=== PATIENT | male | born 1950 | race American Indian/Alaskan Native ===

== ENCOUNTER 2018-09-01 12:22 | Emergency (ER) | payer MEDICARE ==
[2018-09-01 12:28] VITALS: BP 154/94
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
== END 2018-09-01 15:49 | disposition home or self-care (01) ==
LOC: ED 12:22
DX: G89.4 Chronic pain syndrome (principal); M79.641 Pain in right hand; F17.200 Nicotine dependence, unspecified, uncomplicated
CPT/HCPCS: 99282

== ENCOUNTER 2018-10-26 07:48 | Day surgery (SDC) | payer MEDICARE ==
[2018-10-26] MEDS ORDERED: LACTATED RINGERS 1,000 ML IV SCH (10:00)
[2018-10-26] MEDS ORDERED: DIPRIVAN 10 MG/ML IV ONE ×5 (11:19→11:20)
[2018-10-26] MEDS ORDERED: KETALAR ONE (11:20)
[2018-10-26] MEDS ORDERED: VERSED ONE (11:21)
[2018-10-26] MEDS ORDERED: SUBLIMAZE ONE ×2 (11:22→12:09)
[2018-10-26] MEDS ORDERED: DILAUDID IV PRN (11:54)
--- NOTE | 2018-10-26 11:54 | Anesthesia Consultation ---
Anesthesia Consult and Med Hx Date of service: 10/26/18 - Airway Anesthetic Teeth Evaluation: Poor ROM Head & Neck: Adequate Mental/Hyoid Distance: Adequate Mallampati Class: Class II Intubation Access Assessment: Probably Good - Pulmonary Exam CTA: Yes - Cardiac Exam Cardiac Exam: RRR - Pre-Operative Health Status ASA Pre-Surgery Classification: ASA2 Proposed Anesthetic Plan: MAC - Pulmonary Hx Smoking: Yes Hx Respiratory Symptoms: No Hx Sleep Apnea: No - Cardiovascular System Hx Hypertension: No Hx Heart Attack/AMI: No - Central Nervous System CVA: No - Gastrointestinal Hx Gastroesophageal Reflux Disease: No - Endocrine Hx Renal Disease: No Hx Insulin Dependent Diabetes: No - Other Systems Hx Obesity: No
--- NOTE | 2018-10-26 11:54 | Anesthesia Day of Surgery ---
Anesthesia Day of Surgery - Day of Surgery Patient Examined: Yes Patient H&P Reviewed: Yes Patient is NPO: Yes
[2018-10-26] MEDS ORDERED: NACL 0.9% 1000 ML IR ONE (11:56)
[2018-10-26] MEDS ORDERED: XYLOCAINE MPF 2% ONE (12:09)
[2018-10-26] MEDS ORDERED: ROBINUL ONE (12:09)
[2018-10-26] MEDS ORDERED: XYLOCAINE 1% 20 mL ONE (12:13)
[2018-10-26] MEDS ORDERED: MARCAINE 0.25% INFILTRATI ONE ×2 (12:13→13:05)
[2018-10-26] MEDS ORDERED: ANCEF/STERILE WATER 2 GM/20 ML IV NR (13:00)
[2018-10-26] MEDS ORDERED: XYLOCAINE 1% 20 mL INFILTRATI ONE (13:05)
--- NOTE | 2018-10-26 13:58 | Procedure Note ---
Date of procedure: 10/26/18 Pre-op diagnosis: malunion proximal phalanx right second finger Post-op diagnosis: same Procedure: Open reduction internal fixation right proximal phalanx second finger Procedure The patient was brought to the OR and placed in the ER table in supine position following Mac anesthesia patient's right upper extremity was prepped and draped in the usual sterile manner. A timeout procedure was done to identify the patient and the correct operative site. The arm was exsanguinated followed by inflation of the pneumatic tourniquet to 250 mmHg. A dorsal incision was made and a bayonet-type fashion over the proximal aspect of the phalanx to the PIP joint next the extensor tendon was seen this was then incised longitudinally exposing the fracture site the patient was noted to have fairly substantial fracture callus formation using C-arm fluoroscopy with a would then applied the fracture malunion site using a small osteotome to fracture callus was broken allowing some manipulation of the fracture fragments. Small mini frag lock plate was applied to the distal portion of the proximal phalanx the head fragment splintered doing the manipulation process therefore an interfragmentary screw was used to stabilize this segment followed by placement of the T-type plate with screws of appropriate lengths A AP and lateral view was obtained showing good reduction at the fracture site and placement of the hardware. Next the wound was copiously irrigated the extensor tendon was repaired using 4-0 nylon in an interrupted fashion 3-0 nylon was then applied to the skin for closure. Postop dressings and AlumaFoam splint applied to the second finger. P atient tolerated the procedure dental complications Anesthesia: MAC Surgeon: JOCE MARTINEZ Floor Winder: CLARISSA IYER Estimated blood loss: minimal Pathology: none Condition: stable Disposition: PACU
[2018-10-26 14:39] VITALS: BP 149/99
--- NOTE | 2018-10-26 15:14 | XRay Report ---
Operative right second finger: AP and lateral views demonstrates internal fixation of the proximal phalanx. There is an oblique fracture through the distal third stabilized with a posterior plate and multiple screws. There are 2 distal transverse screws. The ulnar margin of the bone appears from the penetrating screws. No additional information obtained.
== END 2018-10-26 07:49 | disposition home or self-care (01) ==
LOC: OR 07:48
PROVIDERS: ATTEND Orthopaedic Surgery
DX: S62.610 Displaced fracture of proximal phalanx of right index finger (principal); F17.210 Nicotine dependence, cigarettes, uncomplicated; Z79.899 Other long term (current) drug therapy; X58.XXXD Exposure to other specified factors, subsequent encounter
CPT/HCPCS: 26735; 73140; C1713; J0690; J1170; J2250; J2704; J3010; J7030; J7120

== ENCOUNTER 2019-01-05 18:16 | Emergency (ER) | payer MEDICARE ==
[2019-01-05 20:00] LABS: Basophils % (Auto) 0.6 % (0.0-1.8); Eosinophils # (Auto) 0.1 K/mm3 (0.0-0.4); Eosinophils % (Auto) 0.9 % (0.0-4.3); Hematocrit 39.6 % (35.5-45.6); Hemoglobin 13.4 gm/dl (11.8-15.2); Lymphocytes # (Auto) 1.4 K/mm3 (1.2-5.4); Lymphocytes % (Auto) 17.7 % (13.4-35.0); Mean Corpuscular HGB Conc 34 % (32-34); Mean Corpuscular Volume 84 fl (84-94); Monocytes # (Auto) 0.6 K/mm3 (0.0-0.8); Monocytes % (Auto) 7.6 % (0.0-7.3); Platelet Count 233 K/mm3 (140-440); Red Blood Count 4.73 M/mm3 (3.65-5.03); Red Cell Distribution Width 15.6 % (13.2-15.2)
[2019-01-05 20:19] LABS: BUN/Creatinine Ratio 8; Blood Urea Nitrogen 8 mg/dL (9-20); Calcium 9.1 mg/dL (8.4-10.2)
[2019-01-05 20:20] LABS: Hemolysis Index 14
--- NOTE | 2019-01-05 20:20 | Emergency Department Report ---
ED General Adult HPI - General Chief complaint: Psych Stated complaint: ETOH/DEPRESSION Time Seen by Provider: 01/05/19 20:05 Source: patient, EMS Mode of arrival: Ambulatory Limitations: No Limitations - History of Present Illness Initial comments: Patient is a 68-year-old male that presents emergency room with complaints of depression, acute intoxication. Patient also complains of suicidal ideations. Patient states that he has been having thoughts of killing himself and his plan is to drink himself to . Patient states she's been drinking for the past few weeks due to his depression. Patient states he was sober for 6 months until he became severely depressed. Patient states been having a lot of family stressors. Patient denies homicidal ideation. Patient denies hallucinations. Patient states he is currently intoxicated. Patient states earlier today he drank so much that he fell and hit his head. -: Sudden - Related Data Home Medications Medication Instructions Recorded Confirmed Last Taken No Known Home Medications [No 01/05/19 01/05/19 Unknown Reported Home Medications] Allergies Allergy/AdvReac Type Severity Reaction Status Date / Time No Known Allergies Allergy Verified 01/05/19 19:28 ED Review of Systems ROS: Stated complaint: ETOH/DEPRESSION Other details as noted in HPI Constitutional: denies: chills, fever Eyes: denies: eye pain, eye discharge, vision change ENT: denies: ear pain, throat pain Respiratory: denies: cough, shortness of breath, wheezing Cardiovascular: denies: chest pain, palpitations Endocrine: no symptoms reported Gastrointestinal: denies: abdominal pain, nausea, diarrhea Genitourinary: denies: urgency, dysuria Musculoskeletal: denies: back pain, joint swelling, arthralgia Skin: denies: rash, lesions Neurological: denies: headache, weakness, paresthesias Psychiatric: anxiety, depression, suicidal thoughts Hematological/Lymphatic: denies: easy bleeding, easy bruising ED Past Medical Hx - Past Medical History Previous Medical History?: Yes Hx Hypertension: No Hx Heart Attack/AMI: No Hx Renal Disease: No Additional medical history: Hep C - Surgical History Past Surgical History?: Yes Additional Surgical History: Both hands. hernia - Family History Family history: no significant - Social History Smoking Status: Former Smoker Substance Use Type: Alcohol - Medications Home Medications: Home Medications Medication Instructions Recorded Confirmed Last Taken Type No Known Home Medications [No 01/05/19 01/05/19 Unknown History Reported Home Medications] ED Physical Exam - General Limitations: No Limitations General appearance: alert, in no apparent distress - Head Head exam: Present: atraumatic, normocephalic - Eye Eye exam: Present: normal appearance, PERRL, other (left face abrasion.) Pupils: Present: normal accommodation - ENT ENT exam: Present: mucous membranes moist - Neck Neck exam: Present: normal inspection - Respiratory Respiratory exam: Present: normal lung sounds bilaterally. Absent: respiratory distress - Cardiovascular Cardiovascular Exam: Present: regular rate, normal rhythm. Absent: systolic murmur, diastolic murmur, rubs, gallop - GI/Abdominal GI/Abdominal exam: Present: soft, normal bowel sounds - Rectal Rectal exam: Present: deferred - Extremities Exam Extremities exam: Present: normal inspection - Back Exam Back exam: Present: normal inspection - Neurological Exam Neurological exam: Present: alert, oriented X3 - Psychiatric Psychiatric exam: Present: normal affect, normal mood - Skin Skin exam: Present: warm, dry, normal color, abrasion (left face). Absent: rash ED Course Vital Signs 01/05/19 20:31 Respiratory 16 Rate O2 Sat by Pulse 99 Oximetry - Reevaluation(s) Reevaluation #1: Initial evaluation done. Patient placed on a 1013. 01/05/19 20:30 Reevaluation #2: Discussed all results the patient. Patient is medically cleared but will remain in the ER on a 1013. Patient remained in the ER until he is accepted into a [facility] psychiatric facility. 01/06/19 00:02 ED Medical Decision Making - Lab Data Result diagrams: 01/05/19 19:49 01/05/19 19:49 - Radiology Data Radiology results: report reviewed CT head/brain wo con INDICATION: head injury.. TECHNIQUE: Routine CT head without contrast. All CT scans at this location are performed using CT dose reduction for ALARA by means of automated exposure control. COMPARISON: None. FINDINGS: BRAIN / INTRACRANIAL CONTENTS: No acute hemorrhage, mass effect, midline shift, or hydrocephalus. No appreciable acute large territorial or lacunar infarct. No chronic infarct. ORBITS: No significant abnormality of visualized orbits. SINUSES / MASTOIDS: No significant abnormality of visualized sinuses and mastoid air cells. ADDITIONAL FINDINGS: Small left facial soft tissue contusion, not completely imaged. IMPRESSION: 1. No acute intracranial abnormality. - Medical Decision Making Patient is a 68-year-old male that presents emergency room with depression, acute intoxication and suicidal ideation. Patient's ideations or with the plan. Patient placed on 1013. Patient had multiple labs which were unremarkable except for elevated blood alcohol. Patient had a head CT done and negative. Karel jori is medically cleared - Differential Diagnosis suicidal ideations. Acute intoxication. Head injury. Fall. Critical care attestation.: If time is entered above; I have spent that time in minutes in the direct care of this critically ill patient, excluding procedure time. ED Disposition Clinical Impression: Suicidal ideation, Acute depression Acute alcohol intoxication Qualifiers: Complication of substance-induced condition: uncomplicated Qualified Code(s): F10.920 - Alcohol use, unspecified with intoxication, uncomplicated Fall Qualifiers: Encounter type: initial encounter Qualified Code(s): W19.XXXA - Unspecified fall, initial encounter Head injury Qualifiers: Encounter type: initial encounter Qualified Code(s): S09.90XA - Unspecified injury of head, initial encounter Facial abrasion Qualifiers: Encounter type: initial encounter Qualified Code(s): S00.81XA - Abrasion of other part of head, initial encounter Disposition: DC/TX-65 PSY HOSP/PSY UNIT Is pt being admited?: No Does the pt Need Aspirin: No Condition: Stable Additional Instructions: Patient is medically cleared Referrals: MAGGIE TORREZ MD [Primary Care Provider] - 3-5 Days Time of Disposition: 00:02
[2019-01-05 20:42] LABS: Bilirubin,Urine NEG (Negative); Blood,Urine MOD (Negative); Color,Urine Yellow (Yellow); Mucus,Urine 3+ /HPF; Protein,Urine <15 mg/dL mg/dL (Negative); Urobilinogen,Urine < 2.0 mg/dL (<2.0)
[2019-01-05 20:56] LABS: Amphetamine Screen,Urine PRESUMPTIVE NEGATIVE; Benzodiazepines Screen,Urine PRESUMPTIVE NEGATIVE; Cannabinoid Screen,Urine PRESUMPTIVE NEGATIVE; Methadone Screen,Urine PRESUMPTIVE NEGATIVE; Opiate Screen,Urine PRESUMPTIVE NEGATIVE
[2019-01-05 21:15] LABS: Cocaine Screen,Urine PRESUMPTIVE POSITIVE
--- NOTE | 2019-01-05 23:23 | Cat Scan Report ---
CT head/brain wo con INDICATION: head injury.. TECHNIQUE: Routine CT head without contrast. All CT scans at this location are performed using CT dos e reduction for ALARA by means of automated exposure control. COMPARISON: None. FINDINGS: BRAIN / INTRACRANIAL CONTENTS: No acute hemorrhage, mass effect, midline shift, or hydrocephalus. No appreciable acute large territorial or lacunar infarct. No chronic infarct. ORBITS: No significant abnormality of visualized orbits. SINUSES / MASTOIDS: No significant abnormality of visualized sinuses and mastoid air cells. ADDITIONAL FINDINGS: Small left facial soft tissue contusion, not completely imaged. IMPRESSION: 1. No acute intracranial abnormality. Signer Name: Nixon Santiago MD Signed: 01/05/2019 11:18 PM Workstation Name: [id number]
[2019-01-06] MEDS ORDERED: MAGNESIUM SULFATE 2GM/50ML 0 GM/0 ML BAG IV ONE (02:09)
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
[2019-01-07] MEDS: MELATONIN PO SCH (21:57)
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
--- NOTE | 2019-01-08 07:55 | Progress Note ---
Subjective - Reason for Consult Consult date: 01/08/19 Reason for consult: Psychiatry Follow-up - Chief Complaint Chief complaint: "I have no idea what's going to happen to me" 68-year-old AA who presented to the ER for SI's and ETOH. Today the patient was calm and cooperative during the assessment. He stated that he is concerned about his living arrangements at this time. He would not confirm or deny SI's when asked. He rate his depression 6/10, with 10 being the worse. He denies HI's and AVH's. Mental Status Exam - Vital signs Last Vital Signs Temp 97.5 F L 01/08/19 02:03 Pulse 66 01/08/19 02:03 Resp 16 01/08/19 02:03 BP 112/72 01/08/19 02:03 Pulse Ox 99 01/08/19 02:03 - Exam Narrative exam: MSE: Appearance: calm, cooperative Behavior: regular eye contact Speech: regular rate and tone Mood: "not good" Affect: flat Thought Process: circumstantial Thought Content: denies HI's and AVH's Motor Activity: ambulatory Cognition: A/O x 3 Insight: variable to fair Judgment: variable Assessment and Plan Impression: MDD, Single Episode. Alcohol Use DO. Substance Use DO (cocaine). Today the patient was calm and cooperative during the assessment. No acute withdrawals noted (etoh). DDx: Substance Induced Mood DO Recommendation/Plan: Continue 1013 and Prozac 20 mg PO daily for depression and Melatonin 5 mg PO HS for sleep. Discussed possible suicidality/medication induced min with the patient reference Prozac, he verbalized understanding. Dispo: The patient was accepted at [facility] for inpatient psy services. Will staffed with Dr Irina Lopez.
[2019-01-08] MEDS: PROzac PO SCH (10:17)
[2019-01-08 19:05] VITALS: BP 142/93
== END 2019-01-08 21:20 ==
LOC: ED 18:16 → EEVIPCON 18:16 → ED 01-08 21:20
DX: S00.81XA Abrasion of other part of head, initial encounter (principal); F10.129 Alcohol abuse with intoxication, unspecified; R45.851 Suicidal ideations; F32.9 Major depressive disorder, single episode, unspecified; F10.10 Alcohol abuse, uncomplicated; F14.10 Cocaine abuse, uncomplicated; B19.20 Unspecified viral hepatitis C without hepatic coma; Z59.0 Homelessness; Z87.891 Personal history of nicotine dependence; Z98.890 Other specified postprocedural states; W01.10XA Fall on same level from slipping, tripping and stumbling with subsequent striking against unspecified object, initial encounter; Y93.89 Activity, other specified; Y92.89 Other specified places as the place of occurrence of the external cause; Y99.8 Other external cause status
CPT/HCPCS: 36415; 70450; 80048; 80307; 80320; 81001; 82962; 85025; G0480; J3475

== ENCOUNTER 2019-05-24 13:29 | Emergency (ER) | payer MEDICARE ==
[2019-05-24 15:47] VITALS: BP 122/74
--- NOTE | 2019-05-24 15:48 | Event Note ---
ED Screening Note ED Screening Note: Right flank pain x3 days no N/V/D no fever no urinary sx no hematuria or dark urine hx of nephrolithiasis states he has a urologist never had to have a procedure for the stones This initial assessment/diagnostic orders/clinical plan/treatment(s) is/are subject to change based on patients health status, clinical progression and re- assessment by fellow clinical providers in the ED. Further treatment and workup at subsequent clinical providers discretion. Patient/guardian urged not to elope from the ED as their condition may be serious if not clinically assessed and managed. Initial orders include: labs, UA, CT abd pelvis without contrast
[2019-05-24 16:31] LABS: Hematocrit 42.9 % (35.5-45.6); Hemoglobin 13.6 gm/dl (11.8-15.2); Mean Corpuscular HGB Conc 32 % (32-34); Mean Corpuscular Volume 82 fl (84-94); Platelet Count 261 K/mm3 (140-440)
[2019-05-24 16:49] LABS: Albumin 4.3 g/dL (3.9-5); BUN/Creatinine Ratio 14; Blood Urea Nitrogen 15 mg/dL (9-20); Calcium 9.4 mg/dL (8.4-10.2); Hemolysis Index 98
[2019-05-24 17:07] LABS: Bacteria,Urine 1+ /HPF (Negative); Bilirubin,Urine NEG (Negative); Blood,Urine MOD (Negative); Color,Urine Yellow (Yellow); Mucus,Urine FEW /HPF; Urobilinogen,Urine < 2.0 mg/dL (<2.0)
[2019-05-24 17:11] LABS: Alanine Aminotransferase 11 units/L (7-56)
[2019-05-24 17:17] LABS: Basophils % (Manual) 0 % (0.0-1.8); Total Cells Counted 100
[2019-05-24 17:18] LABS: Ovalocytes Few; Platelet Estimate Consistent w Auto
--- NOTE | 2019-05-24 17:36 | Cat Scan Report ---
CT ABDOMEN AND PELVIS WITHOUT IV CONTRAST INDICATION: right flank pain. COMPARISON: None available. TECHNIQUE: All CT scans at this facility use dose modulation, automated exposure control, iterative reconstructi on or weight based dosing, when appropriate, to reduce radiation dose to as low as reasonably achieva ble. FINDINGS: Lung Bases: There is mild scarring versus atelectasis within the lung bases. Skeletal System: No acute abnormality. ABDOMEN: Liver: No significant abnormality. Gallbladder: There are a few punctate gallstones. The gallbladder is otherwise unremarkable. Bile Ducts: No significant abnormality. Pancreas: No significant abnormality. Spleen: No significant abnormality. Adrenals: No significant abnormality. Right Kidney: Right nephrolithiasis is noted. The largest stone measures 1 cm. There is no right hydr onephrosis. Left Kidney: There is a single nonobstructing left renal stone. No left hydronephrosis. Upper GI tract: No significant abnormality. Lymph Nodes: No significant adenopathy. Aorta: No significant abnormality. Additional Findings: No significant abnormality. PELVIS: Colon: No acute abnormality. Diverticulosis is noted. Urinary Bladder and Distal Ureters: No significant abnormality. Appendix: No significant abnormality. Lymph Nodes: No significant adenopathy. Additional Findings: None. IMPRESSION: 1. Within the limitations of non contrast technique, no acute process in the abdomen or pelvis. 2. Nephrolithiasis, as above. No hydronephrosis. 3. Cholelithiasis. Signer Name: Jordan Douglass MD Signed: 05/24/2019 5:31 PM Workstation Name: [id number]
== END 2019-05-25 03:22 | disposition left against medical advice (07) ==
LOC: ED 13:29
DX: R10.9 Unspecified abdominal pain (principal); Z53.21 Procedure and treatment not carried out due to patient leaving prior to being seen by health care provider
CPT/HCPCS: 36415; 74176; 80053; 81001; 85007; 85025; 87086